=== PATIENT | male | born 1960 | race Caucasian/White ===

== ENCOUNTER → 2018-07-17 | Outpatient (CLI) | payer BC | END | disposition home or self-care (01) | LOC: CFH 09:08 | PROVIDERS: ATTEND Internal Medicine | DX: R91.8 Other nonspecific abnormal finding of lung field (principal); Z87.891 Personal history of nicotine dependence | CPT/HCPCS: G0297 ==

== ENCOUNTER 2019-04-20 09:10 | Outpatient (CLI) | payer BC | END 2019-04-20 23:59 | disposition home or self-care (01) | LOC: CFH 09:10 → EDSTATUS 09:30 → CFH 23:59 → EDSTATUS 05-02 09:00 | PROVIDERS: ATTEND Family Medicine | DX: Z12.2 Encounter for screening for malignant neoplasm of respiratory organs (principal); R91.8 Other nonspecific abnormal finding of lung field; Z87.891 Personal history of nicotine dependence | CPT/HCPCS: G0297 ==

== ENCOUNTER → 2020-05-26 | Outpatient (CLI) | payer BC | END | disposition home or self-care (01) | LOC: CFH 12:10 | PROVIDERS: ATTEND Family Medicine | DX: Z12.2 Encounter for screening for malignant neoplasm of respiratory organs (principal); R91.8 Other nonspecific abnormal finding of lung field; Z87.891 Personal history of nicotine dependence | CPT/HCPCS: G0297 ==